=== PATIENT | female | born 1980 | race Caucasian/White ===

== ENCOUNTER 2024-04-12 08:00 | Outpatient (CLI) | payer OTHER | END 2024-04-12 23:59 | disposition home or self-care (01) | LOC: LAB.WCP 08:00 | PROVIDERS: ATTEND Physician Assistant | DX: Z51.81 Encounter for therapeutic drug level monitoring (principal); Z79.899 Other long term (current) drug therapy | CPT/HCPCS: 80324; 80359; 81599 ==